=== PATIENT | male | born 1965 | race Caucasian/White ===

== ENCOUNTER → 2024-10-01 14:46 | Outpatient (BNVA) | payer OTHER, SELFPAY | PROVIDERS: Visit Provider Physician Assistant | DX: M25.551 Pain in right hip (principal); M25.552 Pain in left hip; M16.11 Unilateral primary osteoarthritis, right hip | CPT/HCPCS: 73522 ==

== ENCOUNTER → 2024-10-23 10:39 | Outpatient (BNVA) | payer OTHER, SELFPAY | PROVIDERS: PCP Internal Medicine; Visit Provider Student in an Organized Health Care Education/Training Program | DX: M16.11 Unilateral primary osteoarthritis, right hip (principal); R03.0 Elevated blood-pressure reading, without diagnosis of hypertension | CPT/HCPCS: 77002 ==

== ENCOUNTER 2025-01-31 13:18 | Emergency (ER) | payer OTHER, SELFPAY ==
[2025-01-31 13:31] VITALS: BP 153/91; PULSE 93; TEMP 36.7; O2SAT 96; BMI 29.4
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
[2025-01-31] MEDS: HYDROcodone-acetaminophen 7.5-325 mg Tablet 1 TAB PO (14:35)
[2025-01-31 15:12] VITALS: BP 159/89; PULSE 85; O2SAT 96
--- NOTE | 2025-02-01 08:15 | DCPLANNER ---
messaged ortho for er f/u
== END 2025-01-31 15:14 | disposition home or self-care (01) ==
PROVIDERS: Emergency Provider Emergency Medicine; PCP Internal Medicine
DX: S76.812A Strain of other specified muscles, fascia and tendons at thigh level, left thigh, initial encounter (principal); Z79.82 Long term (current) use of aspirin; X58.XXXA Exposure to other specified factors, initial encounter
CPT/HCPCS: 73552; 99283; J9999

== ENCOUNTER 2025-02-05 14:45 | Outpatient (CLI) | payer OTHER, SELFPAY ==
--- NOTE | 2025-02-05 14:52 | MR_ITS ---
WS: [id number] MRI CERVICAL SPINE NONCONTRAST TECHNIQUE: Sagittal T1, T2 and STIR imaging. Axial T2, gradient, and fiesta imaging. CLINICAL INFORMATION: SPONDYLOSIS W/O MYELOPATHY OR RADICULOPATHY,CSPINE REGION COMPARISON: None. FINDINGS: Straightening of the normal cervical lordosis. Cord signal is normal. Slight anterolisthesis C7 on T1. Disc bulging worse at C5-C7. C2-C3: Normal. C3-C4: Moderate RIGHT facet arthropathy. Moderate RIGHT bony foraminal narrowing. Mild LEFT foraminal narrowing. C4-C5: Moderate RIGHT facet arthropathy. Moderate RIGHT bony foraminal narrowing. C5-C6: LEFT paracentral disc osteophyte protrusion with indentation on the LEFT ventral cervical cord. Mild LEFT greater than RIGHT bony foraminal narrowing. Mild facet arthropathy. C6-C7: Shallow central protrusion with indentation the RIGHT ventral cervical cord. Mild LEFT greater than RIGHT bony foraminal narrowing. Mild central canal stenosis. Mild facet arthropathy. C7-T1: Grade 1 anterolisthesis C7 on T1. Moderate RIGHT and mild LEFT bony foraminal narrowing. Mild central canal stenosis. Visualized brain stem structures: Normal. Prevertebral soft tissues: Normal. MR/MR cervical spin wo con* [id number] IMPRESSION: 1. Mild central canal stenosis C5-C6 C6-C7 and C7-T1 with small disc osteophyt e protrusions. Indentation on the LEFT ventral cervical cord at C5-C6 and RIGHT C6-7. 2. Moderate bony foraminal narrowing worse at RIGHT C3-4, RIGHT C4-5, and RIGH T C7-T1 3. Facet arthropathy worse at RIGHT C3-C4 and RIGHT C4-C5
== END 2025-02-05 14:46 | disposition home or self-care (01) ==
LOC: RAD 14:48
PROVIDERS: PCP Internal Medicine; Visit Provider Registered Nurse
DX: M47.812 Spondylosis without myelopathy or radiculopathy, cervical region (principal); M48.02 Spinal stenosis, cervical region; M25.78 Osteophyte, vertebrae; M48.03 Spinal stenosis, cervicothoracic region; M47.892 Other spondylosis, cervical region; M50.322 Other cervical disc degeneration at C5-C6 level; M50.323 Other cervical disc degeneration at C6-C7 level; M50.222 Other cervical disc displacement at C5-C6 level; M43.13 Spondylolisthesis, cervicothoracic region
CPT/HCPCS: 72141

== ENCOUNTER 2025-02-26 15:08 | Outpatient (CLI) | payer OTHER, SELFPAY ==
--- NOTE | 2025-02-26 16:00 | MR_ITS ---
WS: [id number] MRI LEFT HIP WITHOUT CONTRAST. COMPARISON: 10/01/2024 radiograph Multiplanar, multisequence imaging is performed without contrast. No acute marrow edema or hip fracture. T1 hypointense lobulated bone lesion centered at the base of the greater tuberosity. This is predominantly of increased T2 signal with scattered areas of decreased signal on the T2 sequence. No associated surrounding marrow edema. This lesion measures 12 x 10 mm. Noted to be sclerotic on recent radiograph. No additional bone lesions. Very mild narrowing of the SI joint. High-grade tear involving the hamstring tendons from the ischial tuberosity. Tears involving the semimembranosus and the semitendinosis tendons. There is fluid surrounding the ischial tuberosity. Suspect there is probably a nondisplaced avulsion fracture from the ischial tuberosity. On the recent radio graph there is suggested of healing and sclerosis at the iliac tuberosity suggested suggesting this tear may not be acute. There is also edema in the obturator externus muscle. No additional muscle or soft tissue abnormalities. There is mild narrowing of the hip joints. Slightly greater remodeling and osteoarthritic changes at the RIGHT hip. No joint effusion or marrow edema. MR/MR hip LT wo con* [id number] IMPRESSION: 1. High-grade tear involving the conjoined hamstring tendon. Tears involving t he semimembranosus and semitendinosis tendons without significant retraction. T here is significant soft tissue edema. There are also bone changes suggesting t his may not be acute. Suspect very subtle but nondisplaced avulsion fracture wi th healing was noted on the recent radiograph. 2. Small amount of edema within the LEFT obturator externus muscle. 3. LEFT hip bone lesion measuring 12 x 10 mm. Favor this is an enchondroma.
== END 2025-02-26 15:09 | disposition home or self-care (01) ==
PROVIDERS: PCP Internal Medicine; Visit Provider Orthopaedic Surgery
DX: S76.312A Strain of muscle, fascia and tendon of the posterior muscle group at thigh level, left thigh, initial encounter (principal); R60.0 Localized edema; X58.XXXA Exposure to other specified factors, initial encounter
CPT/HCPCS: 73721

== ENCOUNTER → 2025-03-05 09:26 | Outpatient (BNVA) | payer OTHER, SELFPAY | PROVIDERS: PCP Family Medicine; Visit Provider Family Medicine | DX: E11.9 Type 2 diabetes mellitus without complications (principal); R35.1 Nocturia | CPT/HCPCS: 80053; 80061; 82043; 83036; 84153; 85025 ==

== ENCOUNTER 2025-04-08 05:40 | Day surgery (SDC) | payer OTHER, SELFPAY ==
[2025-04-08 06:00] VITALS: BP 130/105; PULSE 91; RESP 18; TEMP 36.5; O2SAT 96
[2025-04-08 06:08] VITALS: BMI 30.1
--- NOTE | 2025-04-08 06:46 | W.PM.OPSUD ---
Surgery/Procedure H&P Update DATE OF PROCEDURE: April 08, 2025 DATE H&P PERFORMED: 03/24/25 H&P UPDATE INFORMATION: I have reviewed H&P completed within last 30 days, I have examined patient prior to procedure, No changes to prior documentation, Changes to prior documentation as noted here and Risks and benefits of the procedure reviewed PLANNED PROCEDURE: Operation Date: 04/08/25 07:00 Proposed Procedures p Colonoscopy [id number] G0121, Z12.11(Not Applicable) - Nicolás Cast MD
--- NOTE | 2025-04-08 06:58 | ANES.PREANE2 ---
Pre-Anesthetic Assessment Height/Weight: Height 1.78 m Weight 95.254 kg Temp Pulse Resp BP Pulse Ox O2 Del Method 97.7 F 91 18 130/105 96 Room Air 04/08/25 06:00 04/08/25 06:00 04/08/25 06:00 04/08/25 06:00 04/08/25 06:00 04/08/25 06:00 Preop Diagnosis: screening Operation Date: 04/08/25 07:00 Proposed Procedures p Colonoscopy [id number] G0121, Z12.11(Not Applicable) - Nicolás Cast MD Was Beta Reginaldo taken within 24 hours: N/A Was Clonidine taken within 24 hours: N/A Last intake: Intake Last Liquid Date 04/07/25 Last Liquid Time 20:00 Last Solid Date 04/06/25 Last Solid Time 17:00 Social No tobacco Exam alert, oriented x 3, clear to auscultation bilaterally and regular rate & rhythm Airway Submandibular: within normal limits Cervical ROM: within normal limits Mallampati: Class II Dentition: chipped and full Comments: Comments: FROM, TMD<3, linares History/ROS No significant history except as noted Pulmonary None reported CV/HEM Hypertension None reported Hepatic None reported GI None reported Metabolic Diabetes Mellitus [facility] None reported Neuropsych None reported Anesthetic Plan ASA status: 2 Anesthesia: MAC Risk of > 500 ml blood loss (7ml/kg in children): No Medications/Allergies Home Medications ?Medication ?Instructions ?Recorded ?Confirmed ?Last Taken ?Type allopurinol 300 mg tablet 300 mg PO QAM 04/28/24 04/05/25 04/05/25 History atorvastatin 80 mg tablet 80 mg PO QAM 04/28/24 04/05/25 04/05/25 History omega-3 fatty acids 1,000 mg 1,000 mg PO DAILY 04/28/24 04/05/25 04/05/25 History capsule (Super Piercy-3) pantoprazole 40 mg tablet,delayed 40 mg PO DAILY 04/28/24 04/08/25 04/07/25 History release glipizide 5 mg tablet 5 mg PO BID 01/31/25 04/05/25 04/05/25 History meloxicam 7.5 mg tablet 7.5 mg PO DAILY 01/31/25 04/05/25 04/05/25 History methocarbamol 750 mg tablet 750 mg PO Q6H PRN spasms #20 tabs 01/31/25 04/05/25 3 Weeks Ago Rx ~03/15/25 naproxen 500 mg tablet (Naprosyn) 500 mg PO BID PRN pain #20 tabs 01/31/25 04/05/25 04/05/25 Rx valsartan 320 mg tablet 320 mg PO DAILY #90 tabs 03/09/25 04/08/25 04/07/25 Rx Allergies Allergy/AdvReac Type Severity Reaction Status Date / Time No Known Allergies Allergy Verified 04/05/25 09:02 Current Medications Generic Name Dose Route Start Last Admin Trade Name Freq PRN Reason Stop Dose Admin Sodium Chloride 1,000 mls @ 15 mls/hr 04/08/25 05:50 04/08/25 06:10 Sodium Chloride 0.9% IV 04/09/25 05:49 15 mls/hr .Q24H PRN Administration COLONOSCOPY FLUIDS PFSH Anesthesia Medical History Dyslipidemia Gout DM II (diabetes mellitus, type II), controlled Essential (primary) hypertension Surgical History History of foot surgery History of rotator cuff surgery Bilateral History of carpal tunnel surgery Bilateral - 2018 History of ankle surgery Left Family History Grandfather Diabetes Father Renal cancer Mother Congestive heart failure (CHF) Social History Smoking and tobacco/nicotine status: never used tobacco/nicotine Alcohol intake: current Alcohol intake frequency: 0-2 Drinks per Day Alcohol type: beer Substance/Drug Use: never Marital status:
[2025-04-08 07:30] VITALS: BP 130/105; PULSE 91; RESP 18; TEMP 36.5; O2SAT 96
[2025-04-08 07:38] VITALS: BP 159/98; PULSE 92; RESP 18; TEMP 36.5; O2SAT 96
--- NOTE | 2025-04-08 08:22 | ANE.PACU2 ---
Inpatient post-anesthesia follow up: Airway intact: Yes Vital signs: Temperature 97.7 F Pulse Rate 92 Respiratory Rate 18 Blood Pressure 159/98 Pulse Oximetry 96 Oxygen Delivery Me thod Room Air Oxygen Flow Rate Fraction of Inspir ed Oxygen Hydration adequate: Yes Nausea and vomiting: No Pain level: 1 Mental status: Baseline
== END 2025-04-08 08:21 | disposition home or self-care (01) ==
PROVIDERS: PCP Family Medicine; Visit Provider Surgery
PROC: 0DJD8ZZ Inspection of Lower Intestinal Tract, Via Natural or Artificial Opening Endoscopic (ICD-10-PCS; CPT 45378; principal; 2025-04-08 07:00)
DX: Z12.11 Encounter for screening for malignant neoplasm of colon (principal); D12.0 Benign neoplasm of cecum; I10 Essential (primary) hypertension; E11.9 Type 2 diabetes mellitus without complications; K21.9 Gastro-esophageal reflux disease without esophagitis; E78.5 Hyperlipidemia, unspecified
CPT/HCPCS: 36416; 45380; 82962; 88305; J2003; J2704; J3490; J7030